=== PATIENT | female | born 1940 | race Caucasian/White ===

== ENCOUNTER 2016-07-13 04:47 | Emergency (ER) | payer MEDICARE ==
[~2016-07-13 04:47] MED LIST: ANASPAZ0.125 MG PO; B121000P IM; CELEBREX1 PO; D 5000 PO; LOM PO; NEXIUM40 PO; RESTASIS OPH; STEROID IM; ZYRTEC ALLGY10 MG PO
[2016-07-13 05:32] LABS: BASOPHILS 0.7 %; BASOPHILS ABSOLUTE 0.06 10/3/uL (0.0-0.16); EOSINOPHILS 2.6 %; EOSINOPHILS ABSOLUTE 0.24 10/3/uL (0.0-0.53); HEMOGLOBIN 13.5 g/dL (12.0-16.0); IMMATURE GRANULOCYTES 0.4 %; IMMATURE GRANULOCYTES ABSOLUTE 0.04 10/3/uL (0.0-0.11); LYMPHOCYTES 34.2 %; LYMPHOCYTES ABSOLUTE 3.14 10/3/uL (0.67-4.30); MANUAL DIFF NO %; MEAN CORPUS HGB CONC 33.8 g/dL (32.0-36.0); MEAN CORPUSCULAR HEMOGLOB 31.6 pg (26.0-34.0); MEAN CORPUSCULAR VOLUME 93.7 fL (80-100); MEAN PLATELET VOLUME 9.3 fL (9.2-13.0); MONOCYTES 9.5 %; MONOCYTES ABSOLUTE 0.87 10/3/uL (0.21-1.20); NEUTROPHILS 52.6 %; NEUTROPHILS ABSOLUTE 4.82 10/3/uL (2.02-8.40); PLATELET COUNT 221 10/3/uL (150-400); RBC DISTRIBUTION WIDTH 13.6 % (12.0-16.0); RED CELL COUNT 4.27 10/6/uL (4.0-5.6); WHITE BLOOD CELLS 9.2 10/3/uL (4.5-10.5)
[2016-07-13 05:41] LABS: PARTIAL THROMBO TIME 29.7 SEC (22.5-37.2); PROTIME (NOT ORD) 13.3 SEC (12.0-14.5)
[2016-07-13 05:52] LABS: CALCIUM, SERUM 8.4 MG/DL (8.5-10.4); CHEST PAIN PROFILE TAT 0 Hrs 24 Mins; CHLORIDE, SERUM 107 MMOL/L (96-112); CO2 (CARBON DIOXIDE) 23 MMOL/L (24-34); CREATININE 0.62 MG/DL (0.55-1.02); GFR AFRICAN AMERICAN 102 ML/MIN (>=60); GFR NON AFRICAN AMERICAN 88 ML/MIN (>=60); POTASSIUM, SERUM 3.8 MMOL/L (3.5-5.3); SODIUM, SERUM 142 MMOL/L (135-148); TROPONIN I <0.02 NG/ML (<0.05)
[2016-07-13 05:53] LABS: BUN (BLOOD UREA NITROGEN) 17 MG/DL (6-23); GLUCOSE, SERUM 112 MG/DL (60-99)
== END 2016-07-13 07:04 | disposition home or self-care (01) ==
LOC: ER 04:47
PROVIDERS: Specialist
DX: R00.2 Palpitations (principal); K21.9 Gastro-esophageal reflux disease without esophagitis; Z85.828 Personal history of other malignant neoplasm of skin; Z90.710 Acquired absence of both cervix and uterus; Z88.0 Allergy status to penicillin; Z88.1 Allergy status to other antibiotic agents; Z79.899 Other long term (current) drug therapy
CPT/HCPCS: 71010; 80048; 83735; 84484; 85025; 85610; 85730; 93005; 99285